=== PATIENT | female | born 2000 | race Caucasian/White ===

== ENCOUNTER 2023-03-11 09:17 | Outpatient (CLI) | payer OTHER ==
[2023-03-11] MEDS ORDERED: PRENATAL TABLE1 EAC4 PO (09:24)
[2023-03-11] MEDS ORDERED: DIALYVITE 800-1 EACH PO (09:25)
[2023-03-12] MEDS ORDERED: IMODIUM A-D2 M2 PO (07:26)
== END 2023-03-12 09:37 | disposition home or self-care (01) ==
LOC: OBS/DEL 09:17 → LDR 09:25 → OBS/DEL 09:44
PROVIDERS: ATTEND Specialist
DX: O26.892 Other specified pregnancy related conditions, second trimester (principal); K52.89 Other specified noninfective gastroenteritis and colitis; Z3A.22 22 weeks gestation of pregnancy

== ENCOUNTER 2023-05-20 01:48 | Outpatient (CLI) | payer OTHER ==
[~2023-05-20 01:48] MED LIST: DIALYVITE 800-1 EACH PO; IMODIUM A-D2 M2 PO; PRENATAL TABLE1 EAC4 PO
== END 2023-05-20 13:42 | disposition home or self-care (01) ==
LOC: OBS/DEL 01:48
PROVIDERS: Specialist; ATTEND Specialist
DX: O26.893 Other specified pregnancy related conditions, third trimester (principal); O98.513 Other viral diseases complicating pregnancy, third trimester; J02.8 Acute pharyngitis due to other specified organisms; B34.9 Viral infection, unspecified; Z3A.31 31 weeks gestation of pregnancy; Z20.822 Contact with and (suspected) exposure to COVID-19

== ENCOUNTER 2023-07-03 13:00 | Inpatient (IN) | payer OTHER ==
[~2023-07-03] VITALS: Ht 154.9 cm; Wt 88.9 kg
[2023-07-12] MEDS ORDERED: PEPCID20 MG PO (02:40)
[2023-07-12 03:12] LABS: PH,URINE 6.5 (5.0-8.0); URINE APPEARANCE Cloudy; URINE BILIRRUBIN Negative (NEGATIVE); URINE BLOOD Moderate; URINE COLOR Yellow; URINE GLUCOSE Negative (NEGATIVE); URINE LEUKOCYTE Small; URINE NITRATE Negative; URINE PROTEIN 30 (NEGATIVE)
[2023-07-12 03:14] LABS: HEMATOCRIT 33.2 % (36.0-45.00); MEAN CELL VOLUME 82.5 fL (80.00-100.00); MEAN CORPUSCULAR HEMOGLOBIN 27.2 pg (27.00-32.0); PLATELET COUNT 198 K/uL (150-450); RED BLOOD COUNT 4.02 M/uL (4.00-6.00)
[2023-07-12 03:16] LABS: URINE BACTERIA 7009.3 uL (0.0-1933); URINE EPITHELIAL CELLS 73.7 uL (0.0-38.8); URINE RBC 113.9 uL (0.0-20.8); URINE WBC 54.4 uL (0.0-23.2)
[2023-07-12 03:25] LABS: INR < 0.93; PARTIAL THROMBOPLASTIN TIME 27.7 SECONDS (22.0-34.0); PROTHROMBIN TIME 9.8 SECONDS (9.0-11.5)
[2023-07-12 03:27] LABS: URINE CRYSTALS FEW /HPF
[2023-07-12 03:30] LABS: ALBUMIN 2.3 gm/dL (3.4-5.0); BILIRUBIN TOTAL 0.24 mg/dL (0.3-1.2); CALCIUM 8.4 mg/dL (8.5-10.1); CREATININE SERUM 0.55 mg/dL (0.55-1.02); GFR 138.21; GLOBULINA 3.3 G/DL (2.4-3.5); POTASSIUM 4.02 mEq/L (3.5-5.1); TOTAL PROTEIN 5.6 gm/dL (6.4-8.2)
[2023-07-13 00:59] LABS: HEMATOCRIT 29.2 % (36.0-45.00); MEAN CELL VOLUME 83.1 fL (80.00-100.00); MEAN CORPUSCULAR HGB CONC 32.4 g/dl (32.0-36.0); PLATELET COUNT 179 K/uL (150-450); RED BLOOD COUNT 3.51 M/uL (4.00-6.00); RED CELL DISTRIBUTION WIDTH 13.8 % (11.5-14.5)
[2023-07-13 01:47] LABS: HEMOGLOBIN 9.5 g/dL (12.0-15.00)
== END 2023-07-14 15:12 | disposition home or self-care (01) | DRG 807 ==
LOC: LDR 07-12 02:31 → OB/GYN 07-12 02:31 → LDR 07-17 13:00
PROVIDERS: ADMIT Specialist; ATTEND Specialist
PROC: 10E0XZZ Delivery of Products of Conception, External Approach (ICD-10-PCS; principal; 2023-07-12)
PROC: 0W8NXZZ Division of Female Perineum, External Approach (ICD-10-PCS; 2023-07-12)
PROC: 4A1HXCZ Monitoring of Products of Conception, Cardiac Rate, External Approach (ICD-10-PCS; 2023-07-12)
DX: O80 Encounter for full-term uncomplicated delivery (principal); Z37.0 Single live birth; Z3A.39 39 weeks gestation of pregnancy; Z20.822 Contact with and (suspected) exposure to COVID-19

== ENCOUNTER 2024-05-14 12:55 | Emergency (ER) | payer OTHER ==
[~2024-05-14] VITALS: Ht 157.5 cm; Wt 78.9 kg
[~2024-05-14 12:55] MED LIST changes: +PEPCID20 MG PO
[2024-05-14 14:50] LABS: HEMATOCRIT 37.2 % (36.0-45.00); HEMOGLOBIN 12.3 g/dL (12.0-15.00); MEAN CELL VOLUME 87.3 fL (80.00-100.00); MEAN CORPUSCULAR HEMOGLOBIN 28.9 pg (27.00-32.0); MEAN CORPUSCULAR HGB CONC 33.1 g/dl (32.0-36.0); PLATELET COUNT 336 K/uL (150-450); RED BLOOD COUNT 4.26 M/uL (4.00-6.00); RED CELL DISTRIBUTION WIDTH 13.8 % (11.5-14.5)
[2024-05-14 15:30] LABS: CALCIUM 9.3 mg/dL (8.5-10.1); CREATININE SERUM 0.85 mg/dL (0.55-1.02); GFR 82.88
[2024-05-14 15:32] LABS: URINE APPEARANCE Clear; URINE BILIRRUBIN Negative (NEGATIVE); URINE BLOOD Large; URINE COLOR Red; URINE GLUCOSE Negative (NEGATIVE); URINE KETONE Negative (NEGATIVE); URINE LEUKOCYTE Trace; URINE NITRATE Negative; URINE PROTEIN 30 (NEGATIVE); URINE UROBILINOGEN 0.2 E.U./dl
[2024-05-14 15:36] LABS: URINE BACTERIA 821.4 uL (0.0-1933); URINE EPITHELIAL CELLS 12.5 uL (0.0-38.8); URINE WBC 56.8 uL (0.0-23.2)
== END 2024-05-14 16:49 | disposition home or self-care (01) ==
LOC: ER 12:56
PROVIDERS: General Practice
DX: O20.9 Hemorrhage in early pregnancy, unspecified (principal); Z3A.10 10 weeks gestation of pregnancy

== ENCOUNTER 2024-06-11 16:59 | Emergency (ER) | payer OTHER ==
[~2024-06-11] VITALS: Ht 157.5 cm; Wt 78.9 kg
[2024-06-11 17:14] VITALS: BP 101/60; O2SAT 100
[2024-06-11] MEDS ORDERED: CEFAZOLIN SODIUM 1,000 MG VIAL IM STA (18:04)
== END 2024-06-11 18:25 | disposition home or self-care (01) ==
LOC: ER 17:01
DX: R30.0 Dysuria (principal)